=== PATIENT | female | born 1945 | race Caucasian/White ===

== ENCOUNTER 2017-05-15 03:03 | Inpatient (IN) | payer OTHER ==
[~2017-05-15] VITALS: Ht 167.6 cm; Wt 70.3 kg
[2017-05-15] MEDS ORDERED: CRESTOR10 MG (03:26)
[2017-05-15] MEDS ORDERED: ZESTRIL10 M1 (03:26)
[2017-05-17] MEDS ORDERED: PROTONIX40 M1 PO (10:06)
[2017-05-17] MEDS ORDERED: KEFLEX500 MG PO (10:06)
[2017-05-17] MEDS ORDERED: ULTRACET PO (10:06)
== END 2017-05-17 12:20 | disposition home or self-care (01) | DRG 343 ==
LOC: ER 03:03 → SURG 09:18 → SEC-K 09:18 → SURG 12:30
PROVIDERS: Surgery
PROC: BW21Y0Z Computerized Tomography (CT Scan) of Abdomen and Pelvis using Other Contrast, Unenhanced and Enhanced (ICD-10-PCS; 2017-05-15)
PROC: 0DTJ0ZZ Resection of Appendix, Open Approach (ICD-10-PCS; principal; 2017-05-15 13:00)
DX: K35.89 Other acute appendicitis (principal); I10 Essential (primary) hypertension; E78.4 Other hyperlipidemia